=== PATIENT | male | born 1950 | race Caucasian/White ===

== ENCOUNTER 2017-03-27 10:13 | Inpatient (IN) | payer MEDICARE, OTHER ==
--- NOTE | 2017-03-27 11:49 | XR ---
EXAMINATION TYPE: XR Hip LT and AP Pelvis , 3 VIEWS DATE OF EXAM ORDERED: 03/27/2017 HISTORY: Pain. COMPARISON: None. FINDINGS: There are mild degenerative changes in both hips as well as in the lower lumbar spine. No fracture or dislocation is seen. IMPRESSION: 1. NO ACUTE OSSEOUS LESION. 2. MILD DEGENERATIVE CHANGE.
[2017-03-27] MEDS ORDERED: HYDROcodone/APAP 5-325MG 1 EACH TAB PO STA (12:12)
--- NOTE | 2017-03-27 13:02 | CT ---
EXAMINATION TYPE: CT hip LT wo con DATE OF EXAM: 03/27/2017 COMPARISON: NONE HISTORY: Fall off ladder, Lt hip pain TECHNIQUE: Helical acquisition through the region of the left hip was obtained without intravenous co ntrast. The data was reformatted in axial, coronal and sagittal projections. CT DLP: 304 mGycm Automated exposure control for dose reduction was used. FINDINGS: There is a minimally displaced and comminuted fractures of the anterior lip of the acetabul um on the left. No other definite fracture is seen. The femoral neck is not fractured. IMPRESSION: MINIMALLY DISPLACED, COMMINUTED FRACTURE OF THE ANTERIOR ASPECT OF THE ACETABULUM ON THE LEFT. CODE A: INITIAL ASSESSMENT FOR CLOSED FRACTURE
[2017-03-27] MEDS ORDERED: ONDANSETRON 4 MG/2 ML VIAL IVP PRN (13:56)
[2017-03-27] MEDS ORDERED: Acetaminophen-Codeine 300-30mg TAB PO PRN (13:56)
[2017-03-27] MEDS ORDERED: NALOXONE 0.4 MG/ML 1 ML VIAL IV PRN (13:56)
[2017-03-27] MEDS ORDERED: KETOROLAC 30 MG/ML 1 ML VIAL IVP PRN (13:56)
--- NOTE | 2017-03-27 13:56 | ED ---
General Adult HPI - General Chief complaint: Extremity Injury, Lower Stated complaint: fall, hip pain Time Seen by Provider: 03/27/17 10:35 Source: patient Mode of arrival: wheelchair Limitations: no limitations - History of Present Illness Initial comments: 67-year-old man present for evaluation of left hip pain. He states that he fell out of the latter last from a height of about 15 feet. He landed on his back and his side and stated that he had associated left shoulder and left rib pain initially however this has gradually been improving over the weekend. The left hip pain however has continued to worsen. He states it's worse in his back however it does radiate around into his left groin. He has been ambulatory for most of the weekend however he is having difficulty walking at this time. He denies any urinary retention/overflow incontinence, bowel incontinence, saddle anesthesia, lower extremity weakness. Pain is worse with flexion of the hip and weightbearing. Denies hitting his head or anticoagulation use. - Related Data Home Medications Medication Instructions Recorded Confirmed Ibuprofen [Motrin] 400 mg PO Q6HR PRN 03/27/17 03/27/17 Vit A/Vit C/Vit E/Zinc/Copper 1 cap PO DAILY 03/27/17 03/27/17 [ICAPS SOFTGEL] Allergies Allergy/AdvReac Type Severity Reaction Status Date / Time No Known Allergies Allergy Verified 03/27/17 11:02 Review of Systems ROS Statement: Those systems with pertinent positive or pertinent negative responses have been documented in the HPI. ROS Other: All systems not noted in ROS Statement are negative. Constitutional: Denies: fever, chills Eyes: Denies: eye pain, eye discharge ENT: Denies: ear pain, throat pain Respiratory: Denies: cough, dyspnea Cardiovascular: Denies: chest pain, palpitations Endocrine: Denies: fatigue, heat or cold intolerance Gastrointestinal: Denies: abdominal pain, nausea, vomiting Genitourinary: Denies: urgency, dysuria Musculoskeletal: Reports: back pain, arthralgia. Denies: joint swelling, myalgia Skin: Denies: rash, lesions Neurological: Denies: headache, weakness Psychiatric: Denies: anxiety, depression Hematological/Lymphatic: Denies: easy bleeding, easy bruising Past Medical History Past Medical History: No Reported History History of Any Multi-Drug Resistant Organisms: None Reported Past Surgical History: No Surgical Hx Reported Past Psychological History: No Psychological Hx Reported Smoking Status: Former smoker Past Alcohol Use History: None Reported Past Drug Use History: None Reported General Exam Limitations: no limitations General appearance: alert, in no apparent distress Head exam: Present: atraumatic, normocephalic, normal inspection Eye exam: Present: normal appearance, PERRL, EOMI. Absent: scleral icterus, conjunctival injection, periorbital swelling ENT exam: Present: normal exam, mucous membranes moist Neck exam: Present: normal inspection. Absent: tenderness, meningismus, lymphadenopathy Respiratory exam: Present: normal lung sounds bilaterally. Absent: respiratory distress, wheezes, rales, rhonchi, stridor Cardiovascular Exam: Present: regular rate, normal rhythm, normal heart sounds. Absent: systolic murmur, diastolic murmur, rubs, gallop, clicks GI/Abdominal exam: Present: soft, normal bowel sounds. Absent: distended, tenderness, guarding, rebound, rigid Rectal exam: Present: deferred Extremities exam: Present: tenderness, normal capillary refill, other ( tenderness to palpation over the anterior surface of the left hip as well as pain at the sacroiliac joint). Absent: normal inspection, full ROM, pedal edema , joint swelling Back exam: Present: normal inspection Neurological exam: Present: alert, oriented X3, CN II-XII intact Psychiatric exam: Present: normal affect, normal mood Skin exam: Present: warm, dry, intact, normal color. Absent: rash Course Vital Signs 03/27/17 03/27/17 10:25 14:12 Temperature 98.6 F 98.2 F Pulse Rate 77 74 Respiratory 18 18 Rate Blood Pressure 166/94 150/89 O2 Sat by Pulse 99 99 Oximetry Medical Decision Making - Medical Decision Making 67-year-old male presented for evaluation of left hip pain after falling out of a ladder on . On physical examination there is tenderness to palpation of the anterior surface of the left hip as well as posterior pain at the sacroiliac joint. Lower extremity motor, sensation, and pulses are intact. Leg lengths are equal. Concern for left hip fracture and will obtain x-ray. At this time the patient states he does not want any pain medications however stated he will inform if needed anything. X-ray revealed no significant abnormality however on follow-up CT he did have an acetabular fracture of the left hip. The patient was informed of this and agreed with plan to admit for further treatment and evaluation. He did state that during the x-ray he had worsening pain during manipulation and requested to be given something for pain. Pain addressed with [facility], IV established, and labs sent for admission. Dr. Ernst accepted the admission with request for consult with on-call orthopedic surgery. Since incident occurred >24 hours ago there is no indication to inform trauma of the admission. Admission order placed in bed request submitted. - Lab Data Result diagrams: 03/27/17 13:53 03/27/17 13:53 Lab Results 03/27/17 03/27/17 Range/Units 13:53 13:53 WBC 9.0 (3.8-10.6) k/uL RBC 4.60 (4.30-5.90) m/uL Hgb 15.2 (13.0-17.5) gm/dL Hct 43.6 (39.0-53.0) % MCV 94.8 (80.0-100.0) fL MCH 33.0 (25.0-35.0) pg MCHC 34.9 (31.0-37.0) g/dL RDW 13.4 (11.5-15.5) % Plt Count 194 (150-450) k/uL Neutrophils % 76 % Lymphocytes % 16 % Monocytes % 4 % Eosinophils % 1 % Basophils % 1 % Neutrophils # 6.8 (1.3-7.7) k/uL Lymphocytes # 1.5 (1.0-4.8) k/uL Monocytes # 0.4 (0-1.0) k/uL Eosinophils # 0.1 (0-0.7) k/uL Basophils # 0.1 (0-0.2) k/uL Sodium 139 (137-145) mmol/L Potassium 4.0 (3.5-5.1) mmol/L Chloride 103 (98-107) mmol/L Carbon Dioxide 23 (22-30) mmol/L Anion Gap 13 mmol/L BUN 9 (9-20) mg/dL Creatinine 0.83 (0.66-1.25) mg/dL Est GFR (MDRD) Af Amer >60 (>60 ml/min/1.73 sqM) Est GFR (MDRD) Non-Af >60 (>60 ml/min/1.73 sqM) Glucose 113 H (74-99) mg/dL Calcium 9.5 (8.4-10.2) mg/dL Disposition Clinical Impression: Acetabulum fracture, left Disposition: ADMITTED IP TO THIS [facility] Decision to Admit Reason: Admit from EC Decision Date: 03/27/17 Decision Time: 13:56
[2017-03-27 14:12] LABS: Basophils # (A) 0.1 k/uL (0-0.2); Basophils % (A) 1 %; CHCM 36.1; Eosinophils # (A) 0.1 k/uL (0-0.7); Eosinophils % (A) 1 %; HCT 43.6 % (39.0-53.0); HDW 2.67; HGB 15.2 gm/dL (13.0-17.5); Luc # (Auto) 0.16; Luc % (Auto) 2; Lymphocytes # (A) 1.5 k/uL (1.0-4.8); Lymphocytes % (A) 16 %; MCHC 34.9 g/dL (31.0-37.0); MCV 94.8 fL (80.0-100.0); Mean Platelet Volume 8.5; Monocytes # (A) 0.4 k/uL (0-1.0); Monocytes % (A) 4 %; Neutrophils # (A) 6.8 k/uL (1.3-7.7); Neutrophils % (A) 76 %; RDW 13.4 % (11.5-15.5); WBC (Perox) 9.04
[2017-03-27] MEDS ORDERED: LORazepam 2 MG/ML SYRINGE IV PRN ×3 (14:13)
[2017-03-27] MEDS ORDERED: THIAMINE 100 MG/ML 2 ML VIAL IM STA (14:13)
[2017-03-27] MEDS ORDERED: LORazepam 2 MG/ML SYRINGE IV STA (14:14)
[2017-03-27 14:25] LABS: Anion Gap 13 mmol/L; Blood Urea Nitrogen 9 mg/dL (9-20); Calcium 9.5 mg/dL (8.4-10.2); Carbon Dioxide 23 mmol/L (22-30); Chloride 103 mmol/L (98-107); Glucose 113 mg/dL (74-99); Non-African American GFR(MDRD) >60 (>60 ml/min/1.73 sqM); Sodium 139 mmol/L (137-145)
[2017-03-27 15:01] VITALS: BMI 27.8
[2017-03-27] MEDS: THIAMINE 100 MG TAB PO SCH (18:20)
[2017-03-27] MEDS: MORPHINE SULFATE 4 MG/ML SYRINGE IV PRN (20:43)
[2017-03-28] MEDS: MORPHINE SULFATE 4 MG/ML SYRINGE IV PRN ×3 (01:28→11:06)
[2017-03-28 02:02] VITALS: RESP 16
[2017-03-28 06:34] LABS: Basophils # (A) 0.1 k/uL (0-0.2); Basophils % (A) 1 %; CH 33.7; CHCM 35.5; Eosinophils # (A) 0.1 k/uL (0-0.7); Eosinophils % (A) 2 %; HCT 38.3 % (39.0-53.0); HDW 2.69; HGB 13.2 gm/dL (13.0-17.5); Luc # (Auto) 0.14; Luc % (Auto) 3; Lymphocytes # (A) 1.4 k/uL (1.0-4.8); Lymphocytes % (A) 24 %; MCH 33.1 pg (25.0-35.0); MCHC 34.6 g/dL (31.0-37.0); MCV 95.6 fL (80.0-100.0); Mean Platelet Volume 8.3; Monocytes # (A) 0.3 k/uL (0-1.0); Monocytes % (A) 5 %; Neutrophils # (A) 3.7 k/uL (1.3-7.7); Neutrophils % (A) 65 %; RBC 4.01 m/uL (4.30-5.90); RDW 12.9 % (11.5-15.5); WBC 5.7 k/uL (3.8-10.6); WBC (Perox) 5.66
[2017-03-28 06:49] LABS: Anion Gap 6 mmol/L; Blood Urea Nitrogen 12 mg/dL (9-20); Carbon Dioxide 26 mmol/L (22-30); Chloride 104 mmol/L (98-107); Glucose 112 mg/dL (74-99); Non-African American GFR(MDRD) >60 (>60 ml/min/1.73 sqM); Potassium 4.4 mmol/L (3.5-5.1); Sodium 136 mmol/L (137-145)
[2017-03-28 07:45] VITALS: BP 130/79; PULSE 79; TEMP 97.9
--- NOTE | 2017-03-28 08:27 | P.CNOR ---
History of Present Illness - [facility] Consult date: 03/28/17 Consult reason: fracture (Left acetabular fracture) History of present illness: This is a 67-year-old male who was injured while cutting a branch off of his tree yesterday. He states he was on a 15 foot ladder when the chain saw through him off balance. He fell landing on his left hip. He denies any other injuries at this time. He denies head injury or loss of consciousness. He is admitted to Dr. Murrieta we're consulted for orthopedic evaluation. Past Medical History Past Medical History: No Reported History History of Any Multi-Drug Resistant Organisms: None Reported Past Surgical History: No Surgical Hx Reported Past Anesthesia/Blood Transfusion Reactions: No Reported Reaction Past Psychological History: No Psychological Hx Reported Smoking Status: Former smoker Past Alcohol Use History: None Reported Past Drug Use History: None Reported Medications and Allergies Home Medications Medication Instructions Recorded Confirmed Type Ibuprofen [Motrin] 400 mg PO Q6HR PRN 03/27/17 03/27/17 History Vit A/Vit C/Vit E/Zinc/Copper 1 cap PO DAILY 03/27/17 03/27/17 History [ICAPS SOFTGEL] Allergies Allergy/AdvReac Type Severity Reaction Status Date / Time No Known Allergies Allergy Verified 03/27/17 11:02 Physical Examination This is a pleasant 67-year-old male in no acute distress. He is alert and oriented 3. Exam of the head neck reveal no obvious deformity. He has full cervical spine motion without difficulty or pain. There is no pain on palpation about the cervical spine or paraspinal musculature. Exam of the upper extremities unremarkable. There is no obvious deformity. He has full shoulder, elbow, wrist and finger motion bilaterally without pain. Exam of the lower extremities reveals no obvious deformity. He is able lift the right leg off the bed independently without pain or difficulty. There is no hip irritability on the right. He has full knee and ankle motion without difficulty or pain. Exam of left leg reveals pain with motion of the hip. He has difficulty lifting the left leg off the bed independently. He has full foot and ankle motion without difficulty. Neurovascular status to the lower extremities is intact. Results X-ray and CT of the hip and pelvis reveal a nondisplaced fracture of the anterior aspect of mid to anterior aspect of the acetabulum. No fractures noted to the femoral neck or IT region. - Labs Labs: Abnormal Lab Results - Last 24 Hours (Table) 03/27/17 03/28/17 03/28/17 Range/Units 13:53 06:10 06:10 RBC 4.01 L (4.30-5.90) m/uL Hct 38.3 L (39.0-53.0) % Sodium 136 L (137-145) mmol/L Glucose 113 H 112 H (74-99) mg/dL H & H 03/27/17 03/28/17 Range/Units 13:53 06:10 Hgb 15.2 13.2 (13.0-17.5) gm/dL Hct 43.6 38.3 L (39.0-53.0) % Result Diagrams: 03/28/17 06:10 03/28/17 06:10 Assessment and Plan (1) Acetabulum fracture, left Status: Acute Plan: The clinical and radiographic findings are discussed with the patient. The case was discussed with Dr. Jas Kendrick. The patient is to be strict nonweightbearing to the left lower extremity. We will have physical therapy work with him today. We are planning possible discharge to home today if he does well with therapy.
[2017-03-28] MEDS: THIAMINE 100 MG TAB PO SCH (08:39)
--- NOTE | 2017-03-28 10:34 | HP ---
HISTORY AND PHYSICAL CHIEF COMPLAINT: A 15-foot fall off a ladder to his lower extremities with positive acetabular fracture. HISTORY OF PRESENT ILLNESS: This 67-year-old, white male, with left hip pain, fell off a ladder last 15 feet, landed on his back and his side and left shoulder and left rib pain, although they are improved. He had pain in his left groin, CAT scan was done and showed acetabular fracture. Orthopedics is pending nonsurgical repair. He will be set up with home physical therapy and occupational therapy. HOME MEDICATIONS: 1. Motrin. 2. [place]. ALLERGIES: No known drug allergies. REVIEW OF SYSTEM: Fourteen point review of systems negative except for mentioned in HPI. PAST MEDICAL HISTORY: Negative. SOCIAL HISTORY: Former smoker. No alcohol. No illicit drugs. PHYSICAL EXAM: Vital signs stable, afebrile. CARDIOVASCULAR: S1, S2. LUNGS: Clear. GI: Soft. HEMATOLOGY: Negative Homans. PSYCH: Fair mood and affect. Temp 98.2, pulse 74, respiratory 16 to 18, blood pressure 150s to 160s over 89 to 94, O2, 99%, on room air. MUSCULOSKELETAL: Tenderness to palpation in hip area. ASSESSMENT: Acetabular fracture of the left hip. The patient was clinically stabilized and will be sent home in stable condition to follow up as an outpatient. MMODL / IJN: [id number] /
[2017-03-28] MEDS ORDERED: MULTIVITAMINS, THERA 1 EACH TAB PO SCH (12:00)
== END 2017-03-28 12:17 | disposition home health service (06) | DRG 536 ==
LOC: EC 10:13 → 3SUR 13:56
PROVIDERS: ADMIT Family Medicine; ATTEND Family Medicine
DX: S32.402A Unspecified fracture of left acetabulum, initial encounter for closed fracture (principal); Z87.891 Personal history of nicotine dependence; Z79.1 Long term (current) use of non-steroidal anti-inflammatories (NSAID); Z79.899 Other long term (current) drug therapy; Z79.891 Long term (current) use of opiate analgesic; W11.XXXA Fall on and from ladder, initial encounter
CPT/HCPCS: 36415; 73502; 80048; 85025

== ENCOUNTER 2020-05-21 08:25 | Day surgery (SDC) | payer MEDICARE ==
[2020-05-19 10:33] VITALS: BMI 22.9
--- NOTE | 2020-05-21 08:55 | P.GSHP ---
History of Present Illness H&P Date: 05/21/20 CHIEF COMPLAINT: Colon screen HISTORY OF PRESENT ILLNESS: The patient is a 70-year-old male who presents for colon screen. Lower endoscopy was offered for further evaluation and management. PAST MEDICAL HISTORY: Please see list. PAST SURGICAL HISTORY: Please see list. MEDICATIONS: Please see list. ALLERGIES: Please see list. SOCIAL HISTORY: No illicit drug use FAMILY HISTORY: No reports of Crohn disease or ulcerative colitis. REVIEW OF ORGAN SYSTEMS: CONSTITUTIONAL: No reports of fevers or chills. PHYSICAL EXAM: VITAL SIGNS: Stable GENERAL: Well-developed pleasant in no acute distress. HEENT: No scleral icterus. Extraocular movements grossly intact. Moist buccal mucosa. NECK: Supple without lymphadenopathy. CHEST: Unlabored respirations. Equal bilateral excursions. CARDIOVASCULAR: Regular rate and rhythm. Distal 2+ pulses. ABDOMEN: Soft, nontender, nondistended. MUSCULOSKELETAL: No clubbing, cyanosis, or edema. ASSESSMENT: 1. Colon screen. PLAN: 1. Recommend proceeding with a lower endoscopy Past Medical History Past Medical History: No Reported History History of Any Multi-Drug Resistant Organisms: None Reported Past Surgical History: No Surgical Hx Reported Past Anesthesia/Blood Transfusion Reactions: No Reported Reaction Smoking Status: Former smoker - Past Family History Mother Family Medical History: No Reported History Medications and Allergies Home Medications Medication Instructions Recorded Confirmed Type No Known Home Medications 05/19/20 05/19/20 History Allergies Allergy/AdvReac Type Severity Reaction Status Date / Time No Known Allergies Allergy Verified 05/19/20 10:27
[2020-05-21 09:11] VITALS: TEMP 98.5
[2020-05-21] MEDS: LACTATED RINGERS 1,000 ML IV SCH ×2 (09:25→10:15)
[2020-05-21] MEDS ORDERED: LIDOCAINE 1% (10MG/ML) FOR IV START INTRADERMA ONE (09:25)
[2020-05-21] MEDS ORDERED: PROPOFOL 10 MG/ML 20 ML VIAL IV ONE (10:19)
[2020-05-21 10:52] VITALS: RESP 16
--- NOTE | 2020-05-21 10:58 | P.PCN ---
Date of Procedure: 05/21/20 Description of Procedure: PREOPERATIVE DIAGNOSIS: Colonoscopy screening, first POSTOPERATIVE DIAGNOSIS: Colonoscopy screening, first Sigmoid diverticulosis Ascending colon adenoma Rectal adenoma External hemorrhoids Internal hemorrhoids OPERATION: Colonoscopy to the ileocecal valve and appendiceal orifice, cecum Colonoscopy with multiple hot snare polypectomies SURGEON: Lauren Andrew MD. ANESTHESIA: MAC. INDICATIONS: The patient is an 70-year-old male who presents for his first colonoscopy. Benefits and risks were described and informed consent was obtained. DESCRIPTION OF PROCEDURE: The patient had undergone Suprep. He had been brought into the operating room and laid in the left lateral decubitus position. After adequate intravenous sedation, the rectum was examined with 2% lidocaine jelly. The prostate was unremarkable. External hemorrhoids were encountered. The rectal tone was within normal limits. No lesions were palpated in the rectal vault. An Olympus colonoscope was advanced until the cecum, ileocecal valve and appendiceal orifice were clearly viewed. The prep was fair. Sigmoid diverticulosis was encountered. Multiple colonic polyps were found and snare polypectomy. No evidence of focal colitis was found. Retroflexion of the scope demonstrated grade 2 internal hemorrhoids without active bleeding or inflammation. The colon was desufflated. The patient had tolerated the procedure well. Withdrawal time was over 6 minutes. FINDINGS: Aronchick preparation quality scale 1 (1-5) Internal hemorrhoids, grade 2 External hemorrhoids, grade 3 No arteriovenous malformations. Sigmoid diverticulosis Removal of 3 polyps: - Snare polypectomy cecum x 2, 5 to 12 mm tubulovillous adenoma polyp. - Snare polypectomy 10 cm from the anal verge, 5 mm flat villous adenoma polyp. No focal colitis. RECOMMENDATIONS: Given severity of tubular adenomas, recommend repeat colonoscopy in 2 years, 2021 Plan - Discharge Summary Discharge Rx Participant: No New Discharge Prescriptions: Continue No Known Home Medications Discharge Medication List No Known Home Medications 05/19/20 [History] Follow up Appointment(s)/Referral(s): Lauren Andrew MD [STAFF PHYSICIAN] - As Needed Patient Instructions/Handouts: Colorectal Polyps (DC), Diverticulosis Diet (GEN), Diverticulosis (DC) Activity/Diet/Wound Care/Special Instructions: Repeat colonoscopy 2 years, 2021 Discharge Disposition: HOME SELF-CARE
[2020-05-21 11:12] VITALS: BP 159/89; PULSE 71
--- NOTE | 2020-05-23 08:01 | CDI ---
Date: 05.23.2020 CDS/[facility] Name: Romy Waddell Phone: If any questions, call Katerine Zhu Licensed [employer] at [phone] Patient Name: Jean Carlos Espinal Admit Date 05.21.20 Discharge Date: 05.21.20 ATTENTION: The [facility] Coding Staff appreciate your assistance in clarifying documentation. Please respond to the clarification below the line at the bottom and electronically sign. The [facility] Coding staff will review the response and follow-up if needed. Please note: Queries are made part of the Legal Health Record. If you have any questions, please contact the [employer] Appraiser. Dear Dr. Andrew In order to code to the greatest specificity and for the greatest reimbursement I need the following information: in your colonscopy note you have documented: Ascending colon Adenoma and rectal adenoma in the post op dx and Snare polypectomy cecum under findings And on the path report they have: Tubulovillous adenoma of the cecum Please clarify whether the biopsy was of the cecum or ascending colon. Thank you for your kind consideration. Tubulovillous adenoma of the cecum 05/25/20 @ 1921 NIA
== END 2020-05-21 11:41 | disposition home or self-care (01) ==
LOC: ORWHC2ENDO 08:25
PROVIDERS: ATTEND Surgery Plastic and Reconstructive Surgery
DX: Z12.11 Encounter for screening for malignant neoplasm of colon (principal); K57.30 Diverticulosis of large intestine without perforation or abscess without bleeding; D12.6 Benign neoplasm of colon, unspecified; D12.0 Benign neoplasm of cecum; K64.4 Residual hemorrhoidal skin tags; K64.1 Second degree hemorrhoids; Z87.891 Personal history of nicotine dependence; Z97.2 Presence of dental prosthetic device (complete) (partial); Z98.890 Other specified postprocedural states
CPT/HCPCS: 88305; 45385; J2704

== ENCOUNTER → 2020-07-08 | Outpatient (CLI) | payer MEDICARE ==
[2020-07-08 09:44] LABS: Basophils % (A) 1 %; Eosinophils % (A) 1 %; HCT 44.4 % (39.0-53.0); HGB 14.8 gm/dL (13.0-17.5); Lymphocytes # (A) 0.9 k/uL (1.0-4.8); Lymphocytes % (A) 18 %; MCH 34.6 pg (25.0-35.0); MCHC 33.3 g/dL (31.0-37.0); Macrocytosis Slight; Mean Platelet Volume 7.3; Monocytes # (A) 0.3 k/uL (0-1.0); Monocytes % (A) 7 %; Neutrophils # (A) 3.4 k/uL (1.3-7.7); Neutrophils % (A) 71 %; Platelet Count 269 k/uL (150-450); RBC 4.28 m/uL (4.30-5.90); WBC 4.7 k/uL (3.8-10.6)
== END | disposition home or self-care (01) ==
LOC: LABWHC1 09:01
PROVIDERS: ATTEND Family Medicine
DX: R71.8 Other abnormality of red blood cells (principal)
CPT/HCPCS: 36415; 85025

== ENCOUNTER 2022-01-27 14:16 | Inpatient (IN) | payer OTHER, MEDICARE ==
[2022-01-27 16:22] LABS: Basophils % (A) 0 %; Eosinophils % (A) 0 %; HGB 14.8 gm/dL (13.0-17.5); Lymphocytes # (A) 0.8 k/uL (1.0-4.8); Lymphocytes % (A) 8 %; MCHC 34.4 g/dL (31.0-37.0); MCV 104.8 fL (80.0-100.0); Macrocytosis Slight; Mean Platelet Volume 7.4; Monocytes # (A) 0.4 k/uL (0-1.0); Monocytes % (A) 4 %; Neutrophils % (A) 86 %; Platelet Count 238 k/uL (150-450); RDW 11.7 % (11.5-15.5); WBC 9.3 k/uL (3.8-10.6)
[2022-01-27] MEDS ORDERED: PANTOPRAZOLE 40 MG/10 ML VIAL IVP STA (16:23)
[2022-01-27 16:30] LABS: ALT 25 U/L (4-49); AST 52 U/L (17-59); African American GFR (CKD) >90 (>60 ml/min/1.73 sqM); Albumin 4.4 g/dL (3.5-5.0); Alkaline Phosphatase 83 U/L (38-126); Anion Gap 10 mmol/L; Blood Urea Nitrogen 13 mg/dL (9-20); Calcium 9.3 mg/dL (8.4-10.2); Carbon Dioxide 22 mmol/L (22-30); Chloride 91 mmol/L (98-107); Glucose 104 mg/dL (74-99); Non-African American GFR(CKD) >90 (>60 ml/min/1.73 sqM); Potassium 4.8 mmol/L (3.5-5.1); Sodium 123 mmol/L (137-145); Total Bilirubin 1.6 mg/dL (0.2-1.3); Total Protein 7.5 g/dL (6.3-8.2)
[2022-01-27 17:09] LABS: INR 1.1 (<1.2); Prothrombin Time 11.7 sec (9.0-12.0)
[2022-01-27] MEDS ORDERED: THIAMINE 100 MG/ML 2 ML VIAL IM STA (17:12)
[2022-01-27] MEDS ORDERED: LORazepam 1 MG/0.5 ML VIAL IV PRN ×3 (17:12→18:10)
[2022-01-27] MEDS ORDERED: LORazepam 2 MG/ML INJ IV PRN (17:12)
[2022-01-27] MEDS ORDERED: NALOXONE 0.4 MG/ML 1 ML VIAL IV PRN (17:19)
--- NOTE | 2022-01-27 17:19 | ED ---
General Adult HPI - General Chief complaint: GI Bleed Stated complaint: Black Stool, Diarrhea Time Seen by Provider: 01/27/22 16:21 Source: patient, RN notes reviewed, old records reviewed Mode of arrival: wheelchair Limitations: no limitations - History of Present Illness Initial comments: 71-year-old male presents with multiple episodes of black tarry stool. Symptoms began yesterday evening. Patient has no prior history of gastrointestinal hemorrhage or bleeding ulcer. He is a daily drinker, drinks beer. No history of NSAID use. He states he does feel somewhat lightheaded. His last drink was prior to arrival. - Related Data Home Medications Medication Instructions Recorded Confirmed No Known Home Medications 05/19/20 05/21/20 Allergies Allergy/AdvReac Type Severity Reaction Status Date / Time No Known Allergies Allergy Verified 01/27/22 14:59 Review of Systems ROS Statement: Those systems with pertinent positive or pertinent negative responses have been documented in the HPI. ROS Other: All systems not noted in ROS Statement are negative. Past Medical History Past Medical History: No Reported History History of Any Multi-Drug Resistant Organisms: None Reported Past Surgical History: No Surgical Hx Reported Past Anesthesia/Blood Transfusion Reactions: No Reported Reaction Past Psychological History: No Psychological Hx Reported Smoking Status: Former smoker Past Alcohol Use History: Abuse, Daily, Heavy Past Drug Use History: None Reported - Past Family History Mother Family Medical History: No Reported History General Exam Limitations: no limitations General appearance: alert, in no apparent distress Head exam: Present: atraumatic, normocephalic Eye exam: Present: normal appearance Neck exam: Present: normal inspection. Absent: tenderness Respiratory exam: Present: normal lung sounds bilaterally. Absent: respiratory distress Cardiovascular Exam: Present: normal rhythm, tachycardia GI/Abdominal exam: Present: soft. Absent: distended, tenderness, guarding, rebound Rectal exam: Present: normal rectal tone, black stool, hemorrhoids Extremities exam: Present: normal inspection, normal capillary refill Neurological exam: Present: alert, oriented X3, CN II-XII intact. Absent: motor sensory deficit Psychiatric exam: Present: normal affect, normal mood Skin exam: Present: warm, dry, intact Course Vital Signs 01/27/22 14:56 Temperature 98 F Pulse Rate 111 H Respiratory 18 Rate Blood Pressure 129/74 O2 Sat by Pulse 100 Oximetry EKG Findings - EKG Comments: EKG Findings:: EKG: Sinus tachycardia rate of 100, no ischemic changes, VA interval 157, QRS duration 91, QTC [address] segment elevation. Medical Decision Making - Medical Decision Making 71-year-old male with melanotic stool, suggestive of upper GI bleed. Patient is a daily drinker. He started on Protonix. Hemoglobin is stable. Patient has a sodium of 123. His stool sample is heme positive. He will be admitted for serial hemoglobin testing, PPI, patient's will be admitted to [facility] hospitalist group. - Lab Data Result diagrams: 01/27/22 15:02 01/27/22 15:02 Lab Results 01/27/22 01/27/22 01/27/22 Range/Units 15:02 15:02 15:02 WBC 9.3 (3.8-10.6) k/uL RBC 4.10 L (4.30-5.90) m/uL Hgb 14.8 (13.0-17.5) gm/dL Hct 43.0 (39.0-53.0) % MCV 104.8 H (80.0-100.0) fL MCH 36.0 H (25.0-35.0) pg MCHC 34.4 (31.0-37.0) g/dL RDW 11.7 (11.5-15.5) % Plt Count 238 (150-450) k/uL MPV 7.4 Neutrophils % 86 % Lymphocytes % 8 % Monocytes % 4 % Eosinophils % 0 % Basophils % 0 % Neutrophils # 8.0 H (1.3-7.7) k/uL Lymphocytes # 0.8 L (1.0-4.8) k/uL Monocytes # 0.4 (0-1.0) k/uL Eosinophils # 0.0 (0-0.7) k/uL Basophils # 0.0 (0-0.2) k/uL Macrocytosis Slight PT (9.0-12.0) sec INR (<1.2) APTT 27.8 (22.0-30.0) sec Sodium 123 L (137-145) mmol/L Potassium 4.8 (3.5-5.1) mmol/L Chloride 91 L (98-107) mmol/L Carbon Dioxide 22 (22-30) mmol/L Anion Gap 10 mmol/L BUN 13 (9-20) mg/dL Creatinine 0.57 L (0.66-1.25) mg/dL Est GFR (CKD-EPI)AfAm >90 (>60 ml/min/1.73 sqM) Est GFR (CKD-EPI)NonAf >90 (>60 ml/min/1.73 sqM) Glucose 104 H (74-99) mg/dL Calcium 9.3 (8.4-10.2) mg/dL Total Bilirubin 1.6 H (0.2-1.3) mg/dL AST 52 (17-59) U/L ALT 25 (4-49) U/L Alkaline Phosphatase 83 (38-126) U/L Troponin I (0.000-0.034) ng/mL Total Protein 7.5 (6.3-8.2) g/dL Albumin 4.4 (3.5-5.0) g/dL Stool Occult Blood (Negative) Serum Alcohol mg/dL Blood Type Blood Type Recheck Bld Type Recheck Status Antibody Screen Spec Expiration Date 01/27/22 01/27/22 01/27/22 Range/Units 15:02 15:03 16:36 WBC (3.8-10.6) k/uL RBC (4.30-5.90) m/uL Hgb (13.0-17.5) gm/dL Hct (39.0-53.0) % MCV (80.0-100.0) fL MCH (25.0-35.0) pg MCHC (31.0-37.0) g/dL RDW (11.5-15.5) % Plt Count (150-450) k/uL MPV Neutrophils % % Lymphocytes % % Monocytes % % Eosinophils % % Basophils % % Neutrophils # (1.3-7.7) k/uL Lymphocytes # (1.0-4.8) k/uL Monocytes # (0-1.0) k/uL Eosinophils # (0-0.7) k/uL Basophils # (0-0.2) k/uL Macrocytosis PT (9.0-12.0) sec INR (<1.2) APTT (22.0-30.0) sec Sodium (137-145) mmol/L Potassium (3.5-5.1) mmol/L Chloride (98-107) mmol/L Carbon Dioxide (22-30) mmol/L Anion Gap mmol/L BUN (9-20) mg/dL Creatinine (0.66-1.25) mg/dL Est GFR (CKD-EPI)AfAm (>60 ml/min/1.73 sqM) Est GFR (CKD-EPI)NonAf (>60 ml/min/1.73 sqM) Glucose (74-99) mg/dL Calcium (8.4-10.2) mg/dL Total Bilirubin (0.2-1.3) mg/dL AST (17-59) U/L ALT (4-49) U/L Alkaline Phosphatase (38-126) U/L Troponin I <0.012 (0.000-0.034) ng/mL Total Protein (6.3-8.2) g/dL Albumin (3.5-5.0) g/dL Stool Occult Blood Positive (Negative) Serum Alcohol mg/dL Blood Type O Negative Blood Type Recheck No Previous Record Bld Type Recheck Status CABO Indicated Antibody Screen NEGATIVE Spec Expiration Date 01/30/2022 - 230201/27/22 01/27/22 Range/Units 16:36 16:48 WBC (3.8-10.6) k/uL RBC (4.30-5.90) m/uL Hgb (13.0-17.5) gm/dL Hct (39.0-53.0) % MCV (80.0-100.0) fL MCH (25.0-35.0) pg MCHC (31.0-37.0) g/dL RDW (11.5-15.5) % Plt Count (150-450) k/uL MPV Neutrophils % % Lymphocytes % % Monocytes % % Eosinophils % % Basophils % % Neutrophils # (1.3-7.7) k/uL Lymphocytes # (1.0-4.8) k/uL Monocytes # (0-1.0) k/uL Eosinophils # (0-0.7) k/uL Basophils # (0-0.2) k/uL Macrocytosis PT 11.7 (9.0-12.0) sec INR 1.1 (<1.2) APTT (22.0-30.0) sec Sodium (137-145) mmol/L Potassium (3.5-5.1) mmol/L Chloride (98-107) mmol/L Carbon Dioxide (22-30) mmol/L Anion Gap mmol/L BUN (9-20) mg/dL Creatinine (0.66-1.25) mg/dL Est GFR (CKD-EPI)AfAm (>60 ml/min/1.73 sqM) Est GFR (CKD-EPI)NonAf (>60 ml/min/1.73 sqM) Glucose (74-99) mg/dL Calcium (8.4-10.2) mg/dL Total Bilirubin (0.2-1.3) mg/dL AST (17-59) U/L ALT (4-49) U/L Alkaline Phosphatase (38-126) U/L Troponin I (0.000-0.034) ng/mL Total Protein (6.3-8.2) g/dL Albumin (3.5-5.0) g/dL Stool Occult Blood (Negative) Serum Alcohol <10 mg/dL Blood Type Blood Type Recheck Bld Type Recheck Status Antibody Screen Spec Expiration Date Disposition Clinical Impression: Melena, Upper GI bleed Disposition: ADMITTED IP TO THIS HOSP Condition: Stable Is patient prescribed a controlled substance at d/c from ED?: No Referrals: Srinath Stevenson DO [Primary Care Provider] - 1-2 days Time of Disposition: 17:19
[2022-01-27] MEDS: SODIUM CHLORIDE 0.9% 1,000 ML IV SCH (17:49)
[2022-01-27] MEDS: PANTOPRAZOLE 40 MG/10 ML VIAL IVP SCH (20:24)
[2022-01-28 07:16] LABS: Basophils % (A) 0 %; Eosinophils % (A) 1 %; HCT 35.2 % (39.0-53.0); HGB 11.9 gm/dL (13.0-17.5); Lymphocytes # (A) 0.9 k/uL (1.0-4.8); Lymphocytes % (A) 20 %; MCH 35.2 pg (25.0-35.0); MCHC 33.9 g/dL (31.0-37.0); MCV 103.9 fL (80.0-100.0); Macrocytosis Slight; Mean Platelet Volume 7.6; Monocytes # (A) 0.2 k/uL (0-1.0); Monocytes % (A) 5 %; Neutrophils # (A) 3.4 k/uL (1.3-7.7); Neutrophils % (A) 73 %; Platelet Count 151 k/uL (150-450); RBC 3.38 m/uL (4.30-5.90); RDW 11.3 % (11.5-15.5); WBC 4.6 k/uL (3.8-10.6)
[2022-01-28] MEDS: SODIUM CHLORIDE 0.9% 1,000 ML IV SCH ×2 (07:25→19:55)
[2022-01-28] MEDS: PANTOPRAZOLE 40 MG/10 ML VIAL IVP SCH ×2 (07:29→19:48)
[2022-01-28] MEDS: THIAMINE 100 MG TAB PO SCH ×2 (07:31→17:17)
[2022-01-28 07:38] LABS: ALT 17 U/L (4-49); AST 34 U/L (17-59); African American GFR (CKD) >90 (>60 ml/min/1.73 sqM); Albumin 3.1 g/dL (3.5-5.0); Albumin/Globulin Ratio 1.1; Alkaline Phosphatase 63 U/L (38-126); Anion Gap 2 mmol/L; Blood Urea Nitrogen 10 mg/dL (9-20); Calcium 8.4 mg/dL (8.4-10.2); Carbon Dioxide 24 mmol/L (22-30); Chloride 105 mmol/L (98-107); Globulin 2.7 g/dL; Glucose 78 mg/dL (74-99); Non-African American GFR(CKD) >90 (>60 ml/min/1.73 sqM); Potassium 3.8 mmol/L (3.5-5.1); Sodium 131 mmol/L (137-145); Total Bilirubin 1.4 mg/dL (0.2-1.3); Total Protein 5.8 g/dL (6.3-8.2)
--- NOTE | 2022-01-28 11:18 | P.CONS ---
History of Present Illness - Reason for Consult Consult date: 01/28/22 GI bleed Requesting physician: Mayur Morris - Chief Complaint Black tarry stools - History of Present Illness This is a pleasantly somewhat confused 71-year-old white male who presented to the emergency department yesterday evening with complaints of a large black tarry bowel movement. He denied any associated abdominal pain, nausea or vomiting. He denies any anticoagulation or NSAID use. He denies any previous history of GI bleed. He denies any history of peptic ulcer disease or GERD. His last colonoscopy was 05/21/[address] King with findings of internal and external hemorrhoids, diverticulosis and colon polyps. Patient is a is a heavy daily alcohol drinker. He drinks a 20 pack of 18 nodes beers a day according to his . He denies any previous history of esophageal varices, no liver disease or cirrhosis of the liver. On admission he had a hemoglobin of 14.8 with a drop today to 11.9. He had 2 further episodes of black stool yes terday evening and this morning. He is currently on [facility] recall for withdrawals. He is somewhat confused, his is at the bedside to fill in the rest of his history. WBC 4.6 hemoglobin 11.9 hematocrit 35.2 MCV 103.9 MCH 35.2 platelet count 151,009 are 1.1 total bilirubin 1.4 AST 34 ALT 17 alkaline phosphatase 63 ammonia less than 9 Review of Systems REVIEW OF SYSTEMS: CARDIOPULMONARY: No chest pain or shortness of breath. Gastrointestinal: No abdominal pain. No nausea or vomiting. No hematemesis, coffee-ground emesis. No rectal bleeding. Black tarry stool for the last 2 days duration GENITOURINARY: No dysuria or hematuria. MUSCULOSKELETAL: Reports normal range of motion. SKIN: No rashes. No jaundice. ENDOCRINE: No chills, fevers. No excessive weight gain or loss. No polydipsia or polyuria. PSYCHIATRIC: Unremarkable. NEUROLOGY: No change in mental status. Denies dizziness, headache. ENT: Vision unremarkable. CONSTITUTIONAL: No recent weight loss. No fever, chills, night sweats. Past Medical History Past Medical History: No Reported History History of Any Multi-Drug Resistant Organisms: None Reported Past Surgical History: No Surgical Hx Reported Past Anesthesia/Blood Transfusion Reactions: No Reported Reaction Past Psychological History: No Psychological Hx Reported Smoking Status: Former smoker Past Alcohol Use History: Abuse, Daily, Heavy Additional Past Alcohol Use History / Comment(s): QUIT SMOKING AT AGE 25 Past Drug Use History: None Reported - Past Family History Mother Family Medical History: No Reported History Medications and Allergies Home Medications Medication Instructions Recorded Confirmed Type No Known Home Medications 05/19/20 01/27/22 History Allergies Allergy/AdvReac Type Severity Reaction Status Date / Time No Known Allergies Allergy Verified 01/27/22 18:01 Physical Exam Vitals: Vital Signs Temp Pulse Pulse Resp BP BP Pulse Ox 01/28/22 07:40 98.3 F 72 18 137/83 97 01/28/22 00:58 98.6 F 94 18 138/75 98 01/27/22 18:57 99.5 F 86 20 129/82 100 01/27/22 18:26 98.3 F 67 17 134/84 99 01/27/22 17:20 108 H 18 124/81 96 01/27/22 14:56 98 F 111 H 18 129/74 100 Intake and Output 01/27/22 01/28/22 01/28/22 22:59 06:59 14:59 Other: Voiding Method Urinal # Voids 1 # Bowel Movements 1 Weight 54.431 kg General appearance: The patient is alert, oriented, appears in no acute distress. HET: Head is normocephalic and atraumatic. Conjunctiva pink. Sclera anicteric. Neck: Supple without lymphadenopathy. Trachea midline. Heart: S1 S2. Regular rate and rhythm. Lungs: Clear to auscultation. Abdomen: Soft, nontender, nondistended with bowel sounds. No guarding or rigidity. Skin: No rashes. No jaundice. Extremities: Normal skin color and turgor. No pedal edema. Neurological: The patient is alert and oriented to self and place. Seems somewhat confused. Results CBC & Chem 7: 01/28/22 06:55 01/28/22 06:55 Labs: Abnormal Lab Results - Last 24 Hours (Table) 01/27/22 01/27/22 01/28/22 Range/Units 15:02 15:02 06:55 RBC 4.10 L 3.38 L (4.30-5.90) m/uL Hgb 11.9 L (13.0-17.5) gm/dL Hct 35.2 L (39.0-53.0) % MCV 104.8 H 103.9 H (80.0-100.0) fL MCH 36.0 H 35.2 H (25.0-35.0) pg RDW 11.3 L (11.5-15.5) % Neutrophils # 8.0 H (1.3-7.7) k/uL Lymphocytes # 0.8 L 0.9 L (1.0-4.8) k/uL Sodium 123 L (137-145) mmol/L Chloride 91 L (98-107) mmol/L Creatinine 0.57 L (0.66-1.25) mg/dL Glucose 104 H (74-99) mg/dL Total Bilirubin 1.6 H (0.2-1.3) mg/dL Total Protein (6.3-8.2) g/dL Albumin (3.5-5.0) g/dL 01/28/22 Range/Units 06:55 RBC (4.30-5.90) m/uL Hgb (13.0-17.5) gm/dL Hct (39.0-53.0) % MCV (80.0-100.0) fL MCH (25.0-35.0) pg RDW (11.5-15.5) % Neutrophils # (1.3-7.7) k/uL Lymphocytes # (1.0-4.8) k/uL Sodium 131 L (137-145) mmol/L Chloride (98-107) mmol/L Creatinine 0.59 L (0.66-1.25) mg/dL Glucose (74-99) mg/dL Total Bilirubin 1.4 H (0.2-1.3) mg/dL Total Protein 5.8 L (6.3-8.2) g/dL Albumin 3.1 L (3.5-5.0) g/dL Assessment and Plan (1) Upper GI bleed Narrative/Plan: A pleasant 71-year-old male who presented to the emergency department with complaints of black tarry stool for the last 1-2 days duration. No prior history of GI bleed. No prior history of peptic ulcer disease or GERD. Denies any anticoagulation or NSAID use. He has a significant daily drinker drinking approximately 18 beers a day for the last 2-3 years. He denies any history of esophageal varices, no known history of liver disease. He denies any abdominal pain, nausea or vomiting. Patient underwent colonoscopy in [address] Andrew findings included internal/external hemorrhoids, diverticulosis and colon polyps. Possible etiologies include peptic ulcer disease, gastritis, esophagitis, esophageal appears AVM or other possible etiologies. Proceed with EGD tomorrow pending patient is not having withdrawal symptoms. Current Visit: Yes Status: Acute Code(s): K92.2 - GASTROINTESTINAL HEMORRHAGE, UNSPECIFIED SNOMED Code(s): 67344196 (2) Melena Current Visit: Yes Status: Acute Code(s): K92.1 - MELENA SNOMED Code(s): 0268530 (3) Alcohol abuse Current Visit: Yes Status: Acute Code(s): F10.10 - ALCOHOL ABUSE, UNCOMPLICATED SNOMED Code(s): 12306322 Plan: 1. Continue symptomatic and supportive care 2. Protonix 40 mg twice a day 3. Follow CIWA protocols and evaluate for withdrawal symptoms 4. Patient may have clear liquid diet, nothing by mouth after midnight 5. Alcohol abstinence 6. Will proceed with EGD tomorrow if patient stable Thank you for this consultation, we will continue to follow. Dr. Shelli Noyola I agree with the dictator's note, documented as a scribe by Suzi Gan.
--- NOTE | 2022-01-28 14:03 | P.HPIM ---
History of Present Illness H&P Date: 01/28/22 This is a pleasant 71-year-old male who has history of daily alcohol use for many years. He denies daily drinking, at the bedside states he drinks on average 20 tall beers daily, he states he starts drinking around 0600 and drinks until he goes to bed. Patient is a poor historian and his provides most of the history at the bedside. He presents with one-day history of black tarry stool with concern for upper GI bleed. States he was working out in the garage and had a large dark liquidy bowel movement which he was incontinent of. He had one last night and this morning also. He denies shortness of breath, no chest pain. No hematemesis, no coffee ground emesis. No abdominal pain reported, no epigastric burning or discomfort either. He has no history of previous GI bleed, reports no liver disease. No significant medical history noted. He has quit smoking about 40 years ago. He was started on IV Protonix and admitted for work up regarding possible upper GI bleed and GI services has been consulted. Patient is also started on CIWA protocol and will be monitored for acute alcohol withdrawal. He denies history of withdrawal. Diagnostics on admission; EKG is showing sinus tachycardia with heart rate 100, QT interval 406. There are no significant ST or T wave changes. hemoglobin is 14.8 and is now 11.9. Platelets have also dropped from 238 down to 151. Sodium is 131 it was 123 at admission, total bili 1.4. Ammonia less than 9. Occult positive. He is afebrile, heart rate 72, blood pressure 137/83, 97% room air. REVIEW OF SYSTEMS: CONSTITUTIONAL: No fever, no malaise, no fatigue. HEENT: No recent visual problems or hearing problems. Denied any sore throat. CARDIOVASCULAR: No chest pain, orthopnea, PND, no palpitations, no syncope. PULMONARY: No shortness of breath, no cough, no hemoptysis. GASTROINTESTINAL: No nausea, no vomiting, no abdominal pain. Reports 3 episodes of dark loose stool. NEUROLOGICAL: No headaches, no weakness, no numbness. HEMATOLOGICAL: Denies any bleeding or petechiae. GENITOURINARY: Denies any burning micturition, frequency, or urgency. MUSCULOSKELETAL/RHEUMATOLOGICAL: Denies any joint pain, swelling, or any muscle pain. ENDOCRINE: Denies any polyuria or polydipsia. The rest of the 14-point review of systems is negative. PHYSICAL EXAMINATION: GENERAL: The patient is alert and oriented x3, confused. not in any acute dist ress. Well developed, well nourished. HEENT: Pupils are round and equally reacting to light. EOMI. No scleral icterus. No conjunctival pallor. Normocephalic, atraumatic. No pharyngeal erythema. No th yromegaly. CARDIOVASCULAR: S1 and S2 present. No murmurs, rubs, or gallops. PULMONARY: Chest is clear to auscultation, no wheezing or crackles. ABDOMEN: Soft, nontender, nondistended, normoactive bowel sounds. No palpable organomegaly. MUSCULOSKELETAL: No joint swelling or deformity. EXTREMITIES: No cyanosis, clubbing, or pedal edema. NEUROLOGICAL: Gross neurological examination did not reveal any focal deficits. SKIN: No rashes. Assessment and plan Assessment Melenic stool possible upper GI bleed Anemia possible blood loss from upper GI bleed Chronic daily alcohol use Hyponatremia most likely chronic alcohol use drinks beer. Could be a beer potomania. Hypertension with no history Former smoker GI prophylaxis Full Code Plan Patient will be evaluated by GI services and possibly undergo EGD CBC, BMP repeat in the AM Continue on CIWA protocol and monitoring for acute alcohol withdrawal Continue IV hydration with normal saline Continue IV protonix He has been counseled on importance of quitting alcohol Continue all other supportive care The impression and plan of care has been dictated by Sarah Mata Nurse Practitioner as directed. Dr. Parmjit MD I have performed a history and physical examination and medical decision making of this patient, discussed the same with the dictator, and agree with the dictators assessment and plan as written, documented as a scribe. Based on total visit time, I have performed more than 50% of this visit. Past Medical History Past Medical History: No Reported History History of Any Multi-Drug Resistant Organisms: None Reported Past Surgical History: No Surgical Hx Reported Past Anesthesia/Blood Transfusion Reactions: No Reported Reaction Past Psychological History: No Psychological Hx Reported Smoking Status: Former smoker Past Alcohol Use History: Abuse, Daily, Heavy Additional Past Alcohol Use History / Comment(s): QUIT SMOKING AT AGE 25 Past Drug Use History: None Reported - Past Family History Mother Family Medical History: No Reported History Medications and Allergies Home Medications Medication Instructions Recorded Confirmed Type No Known Home Medications 05/19/20 01/27/22 History Allergies Allergy/AdvReac Type Severity Reaction Status Date / Time No Known Allergies Allergy Verified 01/27/22 18:01 Physical Exam Vitals: Vital Signs Temp Pulse Pulse Resp BP BP Pulse Ox 01/28/22 07:40 98.3 F 72 18 137/83 97 01/28/22 00:58 98.6 F 94 18 138/75 98 01/27/22 18:57 99.5 F 86 20 129/82 100 01/27/22 18:26 98.3 F 67 17 134/84 99 01/27/22 17:20 108 H 18 124/81 96 01/27/22 14:56 98 F 111 H 18 129/74 100 Intake and Output 01/27/22 01/28/22 01/28/22 22:59 06:59 14:59 Other: Voiding Method Urinal # Voids 1 # Bowel Movements 1 Weight 54.431 kg Results CBC & Chem 7: 01/28/22 06:55 01/28/22 06:55 Labs: Abnormal Lab Results - Last 24 Hours (Table) 01/27/22 01/27/22 01/28/22 Range/Units 15:02 15:02 06:55 RBC 4.10 L 3.38 L (4.30-5.90) m/uL Hgb 11.9 L (13.0-17.5) gm/dL Hct 35.2 L (39.0-53.0) % MCV 104.8 H 103.9 H (80.0-100.0) fL MCH 36.0 H 35.2 H (25.0-35.0) pg RDW 11.3 L (11.5-15.5) % Neutrophils # 8.0 H (1.3-7.7) k/uL Lymphocytes # 0.8 L 0.9 L (1.0-4.8) k/uL Sodium 123 L (137-145) mmol/L Chloride 91 L (98-107) mmol/L Creatinine 0.57 L (0.66-1.25) mg/dL Glucose 104 H (74-99) mg/dL Total Bilirubin 1.6 H (0.2-1.3) mg/dL Total Protein (6.3-8.2) g/dL Albumin (3.5-5.0) g/dL 01/28/22 Range/Units 06:55 RBC (4.30-5.90) m/uL Hgb (13.0-17.5) gm/dL Hct (39.0-53.0) % MCV (80.0-100.0) fL MCH (25.0-35.0) pg RDW (11.5-15.5) % Neutrophils # (1.3-7.7) k/uL Lymphocytes # (1.0-4.8) k/uL Sodium 131 L (137-145) mmol/L Chloride (98-107) mmol/L Creatinine 0.59 L (0.66-1.25) mg/dL Glucose (74-99) mg/dL Total Bilirubin 1.4 H (0.2-1.3) mg/dL Total Protein 5.8 L (6.3-8.2) g/dL Albumin 3.1 L (3.5-5.0) g/dL Thrombosis Risk Factor Assmnt - Choose All That Apply Each Risk Factor Represents 2 Points: Age 61-74 years Thrombosis Risk Factor Assessment Total Risk Factor Score: 2 Thrombosis Risk Factor Assessment Level: Low Risk Assessment and Plan Time with Patient: Less than 30
[2022-01-29 08:41] LABS: HCT 31.4 % (39.6-50.0); HGB 10.4 g/dL (13.0-17.0); MCH 33.8 pg (27.0-32.0); MCHC 33.1 g/dL (32.0-37.0); MCV 101.9 fL (80.0-97.0); Mean Platelet Volume 10.4 fL (9.5-12.2); NRBC Per 100 WBC 0 /100 WBCS (0.0-0.0); Platelet Count 108 X 10*3/uL (140-440); RBC 3.08 X 10*6/uL (4.40-5.60); RDW 11.3 % (11.5-14.5); WBC 3.58 X 10*3/uL (4.50-10.00)
[2022-01-29 09:10] LABS: African American GFR (CKD) 124.7 (60.0-200.0); Albumin 3.1 g/dL (3.8-4.9); Albumin/Globulin Ratio 1.5 (1.60-3.17); Anion Gap 8.2 mmol/L (10.00-18.00); BUN/Creat Ratio 7.41 Ratio (12.00-20.00); Blood Urea Nitrogen 3.9 mg/dL (9.0-27.0); Calcium 8.3 mg/dL (8.7-10.3); Globulin 2.1 g/dL (1.6-3.3); Non-African American GFR(CKD) 107.6 (60.0-200.0); Potassium 3.3 mmol/L (3.5-5.5); Total Bilirubin 1.2 mg/dL (0.30-1.20); Total Protein 5.2 g/dL (6.2-8.2)
[2022-01-29] MEDS: THIAMINE 100 MG TAB PO SCH ×2 (09:35→18:04)
[2022-01-29] MEDS: PANTOPRAZOLE 40 MG/10 ML VIAL IVP SCH ×2 (09:35→20:12)
[2022-01-29] MEDS: SODIUM CHLORIDE 0.9% 1,000 ML IV SCH (09:39)
[2022-01-29] MEDS ORDERED: LACTATED RINGERS 1,000 ML IV ONE (14:21)
[2022-01-29] MEDS ORDERED: LIDOCAINE 2% INJ 20 MG/ML (2 ML VIAL) ONE (14:22)
[2022-01-29] MEDS ORDERED: PROPOFOL 10 MG/ML 20 ML VIAL IV ONE (14:22)
--- NOTE | 2022-01-29 14:43 | P.PCN ---
Date of Procedure: 01/29/22 Procedure(s) Performed: BRIEF HISTORY: Patient is a 71-year-old, pleasant, male admitted hospital with black tarry stools for the last 2 days' duration. He scheduled for an upper endoscopy to evaluate further.. PROCEDURE PERFORMED: Esophagogastroduodenoscopy. PREOPERATIVE DIAGNOSIS: Acute upper GI bleed. IV sedation per anesthesia. PROCEDURE: After informed consent was obtained, the patient was brought into the endoscopy unit. IV sedation was administered by Anesthesia under continuous monitoring. Initially the Olympus GIF-140 video endoscope was inserted into the mouth. Esophagus intubated without any difficulty. It was gradually advanced into the stomach and duodenum and carefully examined. The bulb and the second part of the duodenum appeared normal. The scope at this time was withdrawn to the stomach, adequately insufflated with air, and upon careful examination, mucosa of the antrum, body, cardia and the fundus appeared normal. The scope was then withdrawn into the esophagus. The GE junction was located at 39 cm from the incisors. Moderate size hiatal hernia noted. There were linear ulcerations in the distal esophagus consistent with LA grade B reflux esophagitis. The rest of the esophagus appeared normal. The the patient tolerated the procedure well. IMPRESSION: 1. Linear ulcerations in the distal esophagus consistent with LA grade B reflux esophagitis. 2. Moderate size hiatal hernia.. RECOMMENDATIONS: The findings of this examination were discussed with the p atient as well as his family. He was advised to continue with Protonix 40 mg twice daily and follow antireflux measures. Diet will be advanced as tolerated..
--- NOTE | 2022-01-29 18:57 | P.PN ---
Subjective This is a pleasant 71-year-old male who has history of daily alcohol use for many years. He denies daily drinking, at the bedside states he drinks on average 20 tall beers daily, he states he starts drinking around 0600 and drinks until he goes to bed. Patient is a poor historian and his provides most of the history at the bedside. He presents with one-day history of black tarry stool with concern for upper GI bleed. States he was working out in the garage and had a large dark liquidy bowel movement which he was incontinent of. He had one last night and this morning also. He denies shortness of breath, no chest pain. No hematemesis, no coffee ground emesis. No abdominal pain reported, no epigastric burning or discomfort either. He has no history of previous GI bleed, reports no liver disease. No significant medical history noted. He has quit smoking about 40 years ago. He was started on IV Protonix and admitted for work up regarding possible upper GI bleed and GI services has been consulted. Patient is also started on CIWA protocol and will be monitored for acute alcohol withdrawal. He denies history of withdrawal. Diagnostics on admission; EKG is showing sinus tachycardia with heart rate 100, QT interval 406. There are no significant ST or T wave changes. hemoglobin is 14.8 and is now 11.9. Platelets have also dropped from 238 down to 151. Sodium is 131 it was 123 at admission, total bili 1.4. Ammonia less than 9. Occult positive. He is afebrile, heart rate 72, blood pressure 137/83, 97% room air. 01/29/2022 this is a pleasant 71 years old male who presents with upper GI bleed. He is also drinks alcohol daily. Patient currently denies abdominal pain or chest pain. He is nothing by mouth today for EGD which results showing Dear ulceration in the distal esophagus suspicious for reflux esophagitis with moderate hiatal hernia. Patient is currently on Protonix 40 mg twice daily intravenously. Also he is on normal saline 75 mL/h but he was not getting it this morning and during the procedure. Sodium down to 128 today. We'll keep monitoring. Patient placed on fluid restriction, discussed with the staff Patient was adamant not to go to rehab but to go home with home care, risks and benefits are explained. Granddaughter at bedside and all questions answered to their satisfaction Objective - Vital Signs Vital signs: Vital Signs Temp 98.3 F 01/29/22 08:00 Pulse 70 01/29/22 08:00 Resp 17 01/29/22 08:00 BP 136/80 01/29/22 08:00 Pulse Ox 100 01/29/22 08:00 FiO2 Intake & Output 01/28/22 01/29/22 01/29/22 18:59 06:59 18:59 Intake Total 800 Balance 800 Intake: Intake, IV Titration 800 Amount Sodium Chloride 0.9% 1, 800 000 ml @ 75 mls/hr IV . [id number] [facility] Rx#:[id number] Other: Voiding Method Toilet # Voids 6 1 # Bowel Movements 6 - Exam -GENERAL: The patient is alert and oriented x3, not in any acute distress. Well developed, well nourished. Generally weak HEENT: Pupils are round and equally reacting to light. EOMI. No scleral icterus. No conjunctival pallor. Normocephalic, atraumatic. No pharyngeal erythema. No thyromegaly. CARDIOVASCULAR: S1 and S2 present. No murmurs, rubs, or gallops. PULMONARY: Chest is clear to auscultation, no wheezing or crackles. ABDOMEN: Soft, nontender, nondistended, normoactive bowel sounds. No palpable organomegaly. MUSCULOSKELETAL: No joint swelling or deformity. EXTREMITIES: No cyanosis, clubbing, or pedal edema. NEUROLOGICAL: Gross neurological examination did not reveal any focal deficits. SKIN: No rashes. no petechiae. - Labs CBC & Chem 7: 01/29/22 05:34 01/29/22 05:34 Labs: Abnormal Lab Results - Last 24 Hours (Table) 01/29/22 01/29/22 Range/Units 05:34 05:34 WBC 3.58 L (4.50-10.00) X 10*3/uL RBC 3.08 L (4.40-5.60) X 10*6/uL Hgb 10.4 L (13.0-17.0) g/dL Hct 31.4 L (39.6-50.0) % MCV 101.9 H (80.0-97.0) fL MCH 33.8 H (27.0-32.0) pg RDW 11.3 L (11.5-14.5) % Plt Count 108 L (140-440) X 10*3/uL Sodium 128 L (135-145) mmol/L Potassium 3.3 L (3.5-5.5) mmol/L Anion Gap 8.20 L (10.00-18.00) mmol/L BUN 3.9 L (9.0-27.0) mg/dL Creatinine 0.5 L (0.6-1.5) mg/dL BUN/Creatinine Ratio 7.41 L (12.00-20.00) Ratio Calcium 8.3 L (8.7-10.3) mg/dL Total Protein 5.2 L (6.2-8.2) g/dL Albumin 3.1 L (3.8-4.9) g/dL Albumin/Globulin Ratio 1.50 L (1.60-3.17) g/dL Assessment and Plan Assessment: Melenic stool possible upper GI bleed, secondary to reflux esophagitis and linear ulceration per EGD on 01/29 Hyponatremia most likely chronic alcohol use drinks beer. Could be a beer p otomania. Anemia possible blood loss from upper GI bleed Chronic daily alcohol use Alcohol abuse at-risk of alcohol withdrawal Hypertension with no history Former smoker Generalized weakness, patient declined in rehab Plan: This is a pleasant 71 years old male who presents with GI bleed secondary to reflux esophagitis Continue with Protonix twice daily GI team evaluated the patient, he is status post EGD on 01/29 Continue with Ativan as needed Continue with normal saline and monitor sodium Labs and medication were reviewed.. Continue same treatment. Continue with symptomatic treatment. Resume home medication. Monitor lytes and vitals. DVT and GI prophylaxis. Further recommendations as per clinical course of the patient DVT prophylaxis: no Subcutaneous heparin for GI bleed GI Prophylaxis: Ppi PT/OT: Patient declined recommended subacute rehab for him Prognosis is guarded
[2022-01-30] MEDS: SODIUM CHLORIDE 0.9% 1,000 ML IV SCH (02:34)
[2022-01-30 08:34] VITALS: BP 127/79; PULSE 80; RESP 17; TEMP 97.8
[2022-01-30] MEDS: THIAMINE 100 MG TAB PO SCH (08:42)
[2022-01-30] MEDS: PANTOPRAZOLE 40 MG/10 ML VIAL IVP SCH (08:42)
[2022-01-30 08:52] LABS: Basophils # (A) 0.02 X 10*3/uL (0.00-0.10); Basophils % (A) 0.5 %; Eosinophils # (A) 0.04 X 10*3/uL (0.04-0.35); HCT 32.4 % (39.6-50.0); HGB 11.4 g/dL (13.0-17.0); Immature Grans, Automated 0.5 %; Lymphocytes % (A) 17.5 %; MCH 35.2 pg (27.0-32.0); MCHC 35.2 g/dL (32.0-37.0); Mean Platelet Volume 10.4 fL (9.5-12.2); Monocytes # (A) 0.26 X 10*3/uL (0.20-1.00); Monocytes % (A) 6.5 %; NRBC Per 100 WBC 0 /100 WBCS (0.0-0.0); Neutrophils # (A) 2.95 X 10*3/uL (1.80-7.70); Platelet Count 112 X 10*3/uL (140-440); RBC 3.24 X 10*6/uL (4.40-5.60); RDW 11.2 % (11.5-14.5); WBC 3.99 X 10*3/uL (4.50-10.00)
[2022-01-30 09:09] LABS: African American GFR (CKD) 118.1 (60.0-200.0); Anion Gap 11.2 mmol/L (10.00-18.00); BUN/Creat Ratio 3.17 Ratio (12.00-20.00); Blood Urea Nitrogen 1.9 mg/dL (9.0-27.0); Calcium 8.5 mg/dL (8.7-10.3); Carbon Dioxide 20.8 mmol/L (20.0-27.5); Magnesium 1.9 mg/dL (1.5-2.4); Non-African American GFR(CKD) 101.9 (60.0-200.0); Potassium 3.4 mmol/L (3.5-5.5)
--- NOTE | 2022-01-30 23:03 | P.DS ---
Providers Date of admission: 01/27/22 17:20 Attending physician: Hill Ernst Consults: 01/27/22 17:19 Consult Physician Routine Consulting Provider: Hedy Noyola Consult Reason/Comments: GI bleed Do you want consulting provider notified?: Yes Primary care physician: Srinath Stevenson [facility] Course: Please note patient was not discharged but he left AGAINST MEDICAL ADVICE Diagnoses: Melenic stool possible upper GI bleed, secondary to reflux esophagitis and linear ulceration per EGD on 01/29, secondary to alcohol effect Hyponatremia most likely chronic alcohol use drinks beer. Could be a beer potomania. Anemia possible blood loss from upper GI bleed Chronic daily alcohol use Alcohol abuse at-risk of alcohol withdrawal Hypertension with no history Former smoker Generalized weakness, patient declined in rehab Hospital course: This is a pleasant 71-year-old male who has history of daily alcohol use for many years. He denies daily drinking, at the bedside states he drinks on average 20 tall beers daily, he states he starts drinking around 0600 and drinks until he goes to bed. Patient is a poor historian and his provides most of the history at the bedside. He presents with one-day history of black tarry stool with concern for upper GI bleed. States he was working out in the garage and had a large dark liquidy bowel movement which he was incontinent of. He had one last night and this morning also. He denies shortness of breath, no chest pain. No hematemesis, no coffee ground emesis. No abdominal pain reported, no epigastric burning or discomfort either. He has no history of previous GI bleed, reports no liver disease. No significant medical history noted. He has quit smoking about 40 years ago. He was started on IV Protonix and admitted for work up regarding possible upper GI bleed and GI services has been consulted. Patient is also started on CIWA protocol and will be monitored for acute alcohol withdrawal. He denies history of withdrawal. Diagnostics on admission; EKG is showing sinus tachycardia with heart rate 100, QT interval 406. There are no significant ST or T wave changes. hemoglobin is 14.8 and is now 11.9. Platelets have also dropped from 238 down to 151. Sodium is 131 it was 123 at admission, total bili 1.4. Ammonia less than 9. Occult positive. He is afebrile, heart rate 72, blood pressure 137/83, 97% room air. 01/29/2022 this is a pleasant 71 years old male who presents with upper GI bleed. He is also drinks alcohol daily. Patient currently denies abdominal pain or chest pain. He is nothing by mouth t kevin for EGD which results showing Dear ulceration in the distal esophagus suspicious for reflux esophagitis with moderate hiatal hernia. Patient is currently on Protonix 40 mg twice daily intravenously. Also he is on normal saline 75 mL/h but he was not getting it this morning and during the procedure. Sodium down to 128 today. We'll keep monitoring. Patient placed on fluid restriction, discussed with the staff Patient was adamant not to go to rehab but to go home with home care, risks and benefits are explained. Granddaughter at bedside and all questions answered to their satisfaction 01/30/2022 Patient today was, awake and alert and he is oriented to time, place and person and he has insight into his illness, he denies any chest pain or dyspnea, no abdominal pain or vomiting or diarrhea. And he is hemodynamically stable. was at bedside Patient states he is well, During the interview patient asked about his discharge, and he did not want to wait till morning blood test results to come back and wanted to leave right away, eventually patient decided to leave AMA, was at bedside. Risks and benefits of having alternatives are explained for him, I asked the patient if there is anything I can do to prevent him from leaving AMA and he declined. Patient declines active symptoms of depression, no hopeless this and help assess, no suicidal ideation, no hallucination. Based upon my evaluation patient has capacity to make medical decision. He told me his to drive. I recommended patient up with PCP as soon as possible RV change his mind to come back to the hospital. Physical exam Gen: patient is a AAOx3, no distress CVS: S1-S2, RRR, no murmur Lungs: B/L CTA, no wheezing Abdomen: soft, no distention, no tenderness, positive bowel sounds Extremity: no leg edema or induration Time spent more than 35 minutes Patient Condition at Discharge: Stable Plan - Discharge Summary Discharge Rx Participant: Yes New Discharge Prescriptions: No Action No Known Home Medications Discharge Medication List No Known Home Medications 05/19/20 [History] Follow up Appointment(s)/Referral(s): Srinath Stevenson DO [Primary Care Provider] - 1-2 days Discharge Disposition: Left Against Medical Advice
== END 2022-01-30 11:13 | disposition left against medical advice (07) | DRG 368 ==
LOC: EC 14:16 → 4SSUR 17:20
PROVIDERS: ADMIT Hospitalist; ATTEND Hospitalist
PROC: 0DJ08ZZ Inspection of Upper Intestinal Tract, Via Natural or Artificial Opening Endoscopic (ICD-10-PCS; principal; 2022-01-29 12:50)
DX: K21.01 Gastro-esophageal reflux disease with esophagitis, with bleeding (principal); K22.11 Ulcer of esophagus with bleeding; E87.1 Hypo-osmolality and hyponatremia; F10.10 Alcohol abuse, uncomplicated; D50.0 Iron deficiency anemia secondary to blood loss (chronic); R15.9 Full incontinence of feces; I10 Essential (primary) hypertension; K44.9 Diaphragmatic hernia without obstruction or gangrene; Z53.29 Procedure and treatment not carried out because of patient's decision for other reasons; Z86.010 Personal history of colon polyps; Z87.891 Personal history of nicotine dependence; Z87.19 Personal history of other diseases of the digestive system
CPT/HCPCS: 36415; 43235; 80048; 80053; 80320; 82140; 82272; 83735; 84484; 85025; 85027; 85610; 85730; 86850; 86900; 86901; 93005; 96372; 96374; 99285

== ENCOUNTER 2022-01-31 12:20 | Emergency (ER) | payer OTHER, MEDICARE ==
[2022-01-31 12:40] VITALS: BP 132/82; PULSE 84; RESP 18; TEMP 99
[2022-01-31 12:56] LABS: Appearance,Urine Clear (Clear); Bilirubin,Urine Negative (Negative); Blood,Urine Negative (Negative); Color,Urine Yellow; Glucose,Urine (UA) Negative (Negative); Ketones,Urine Negative (Negative); Leukocyte Esterase,Urine Negative (Negative); Nitrite,Urine Negative (Negative); PH, Urine 5.5 (5.0-8.0); Protein,Urine Negative (Negative); Specific Gravity,Urine 1.012 (1.001-1.035); Urobilinogen,Urine <2.0 mg/dL (<2.0)
--- NOTE | 2022-01-31 13:40 | ED ---
GI Bleed HPI - General Chief complaint: GI Bleed Stated complaint: Low Hemoglobin Time Seen by Provider: 01/31/22 13:18 Source: patient, family Mode of arrival: EMS Limitations: no limitations - History of Present Illness Initial comments: Patient is a 71-year-old male with past medical history significant for alcohol use disorder who presents to the emergency department for evaluation of low hemoglobin. Patient was recently evaluated in the hospital from 01/27 to 01/30 for melanotic stools. Patient initially presented with a normal hemoglobin at 14.8 which then dropped to 11.9. Patient had an EGD which showed linear ulcerations with esophagitis. Yesterday there was plan to discharge this morning if hemoglobin remained stable however patient left AGAINST MEDICAL ADVICE. Patient's daughter states that one of their family members works here at [facility] and reviewed his hemoglobin level today. She was told level was 8.0. Patient and family then came to the emergency department. Patient states he feels well. He denies fever, chills, lightheadedness, dizziness, chest pain, shortness of breath, abdominal pain, nausea, vomiting, diarrhea, and blood in the stool. Patient's daughter states patient drinks several beers a day. Last drink was this morning. - Related Data Previous Rx's Medication Instructions Recorded Pantoprazole [Protonix] 40 mg PO BID 7 Days #14 tab 01/31/22 Allergies Allergy/AdvReac Type Severity Reaction Status Date / Time No Known Allergies Allergy Verified 01/31/22 12:40 Review of Systems ROS Statement: Those systems with pertinent positive or pertinent negative responses have been documented in the HPI. ROS Other: All systems not noted in ROS Statement are negative. Past Medical History Past Medical History: No Reported History History of Any Multi-Drug Resistant Organisms: None Reported Past Surgical History: No Surgical Hx Reported Past Anesthesia/Blood Transfusion Reactions: No Reported Reaction Past Psychological History: No Psychological Hx Reported Smoking Status: Former smoker Past Alcohol Use History: Abuse, Daily, Heavy Past Drug Use History: None Reported - Past Family History Mother Family Medical History: No Reported History General Exam Limitations: no limitations General appearance: alert, in no apparent distress Head exam: Present: atraumatic, normocephalic, normal inspection Respiratory exam: Present: normal lung sounds bilaterally. Absent: respiratory distress, wheezes, rales, rhonchi, stridor Cardiovascular Exam: Present: regular rate, normal rhythm, normal heart sounds. Absent: systolic murmur, diastolic murmur, rubs, gallop, clicks GI/Abdominal exam: Present: soft, normal bowel sounds. Absent: distended, tenderness, guarding, rebound, rigid Neurological exam: Present: alert, oriented X3, CN II-XII intact Psychiatric exam: Present: normal affect, normal mood Skin exam: Present: warm, dry, intact, normal color. Absent: rash Course Vital Signs 01/31/22 12:35 Temperature 99.0 F Pulse Rate 84 Respiratory 18 Rate Blood Pressure 132/82 O2 Sat by Pulse 98 Oximetry Medical Decision Making - Medical Decision Making This is a 71-year-old male who presents to the emergency department with concern for low hemoglobin. Thorough history and examination were performed. Most recent labs reviewed, obtained yesterday. Hemoglobin is 11.4, increased from 10.4. Platelets are low however have increased from 108 to 112. I will obtain laboratory studies today. Hemoglobin is stable at 11.7. Platelet count is 122. Case discussed with patient. With stable vital signs, lack of symptoms, and stable hemoglobin, discharge with GI follow up is appropriate. I did review case with Dr. Pedro who agrees with plan. I will send patient home with protonix. Patient informed that he will likely have to keep taking this medication if he continues to drink alcohol. GI follow-up is very important. We discussed alcohol cessation in detail. I provided [place] for a resource to quit. Return parameters discussed. Patient and daughter verbalize understanding and are agreeable to this plan. Dr. Harris is my attending. - Lab Data Result diagrams: 01/31/22 13:22 01/31/22 13:22 Lab Results 01/31/22 01/31/22 01/31/22 Range/Units 12:50 13:22 13:22 WBC 3.8 (3.8-10.6) k/uL RBC 3.29 L (4.30-5.90) m/uL Hgb 11.7 L (13.0-17.5) gm/dL Hct 34.6 L (39.0-53.0) % MCV 105.2 H (80.0-100.0) fL MCH 35.6 H (25.0-35.0) pg MCHC 33.8 (31.0-37.0) g/dL RDW 11.3 L (11.5-15.5) % Plt Count 122 L (150-450) k/uL MPV 7.9 Neutrophils % 72 % Lymphocytes % 18 % Monocytes % 6 % Eosinophils % 1 % Basophils % 1 % Neutrophils # 2.7 (1.3-7.7) k/uL Lymphocytes # 0.7 L (1.0-4.8) k/uL Monocytes # 0.2 (0-1.0) k/uL Eosinophils # 0.0 (0-0.7) k/uL Basophils # 0.0 (0-0.2) k/uL Macrocytosis Slight APTT 25.1 (22.0-30.0) sec Sodium (137-145) mmol/L Potassium (3.5-5.1) mmol/L Chloride (98-107) mmol/L Carbon Dioxide (22-30) mmol/L Anion Gap mmol/L BUN (9-20) mg/dL Creatinine (0.66-1.25) mg/dL Est GFR (CKD-EPI)AfAm (>60 ml/min/1.73 sqM) Est GFR (CKD-EPI)NonAf (>60 ml/min/1.73 sqM) Glucose (74-99) mg/dL Calcium (8.4-10.2) mg/dL Total Bilirubin (0.2-1.3) mg/dL AST (17-59) U/L ALT (4-49) U/L Alkaline Phosphatase (38-126) U/L Troponin I (0.000-0.034) ng/mL Total Protein (6.3-8.2) g/dL Albumin (3.5-5.0) g/dL Urine Color Yellow Urine Appearance Clear (Clear) Urine pH 5.5 (5.0-8.0) Ur Specific [place] 1.012 (1.001-1.035) Urine Protein Negative (Negative) Urine Glucose (UA) Negative (Negative) Urine Ketones Negative (Negative) Urine Blood Negative (Negative) Urine Nitrite Negative (Negative) Urine Bilirubin Negative (Negative) Urine Urobilinogen <2.0 (<2.0) mg/dL Ur Leukocyte Esterase Negative (Negative) 01/31/22 01/31/22 Range/Units 13:22 13:22 WBC (3.8-10.6) k/uL RBC (4.30-5.90) m/uL Hgb (13.0-17.5) gm/dL Hct (39.0-53.0) % MCV (80.0-100.0) fL MCH (25.0-35.0) pg MCHC (31.0-37.0) g/dL RDW (11.5-15.5) % Plt Count (150-450) k/uL MPV Neutrophils % % Lymphocytes % % Monocytes % % Eosinophils % % Basophils % % Neutrophils # (1.3-7.7) k/uL Lymphocytes # (1.0-4.8) k/uL Monocytes # (0-1.0) k/uL Eosinophils # (0-0.7) k/uL Basophils # (0-0.2) k/uL Macrocytosis APTT (22.0-30.0) sec Sodium 128 L (137-145) mmol/L Potassium 3.7 (3.5-5.1) mmol/L Chloride 100 (98-107) mmol/L Carbon Dioxide 22 (22-30) mmol/L Anion Gap 6 mmol/L BUN 3 L (9-20) mg/dL Creatinine 0.60 L (0.66-1.25) mg/dL Est GFR (CKD-EPI)AfAm >90 (>60 ml/min/1.73 sqM) Est GFR (CKD-EPI)NonAf >90 (>60 ml/min/1.73 sqM) Glucose 89 (74-99) mg/dL Calcium 8.6 (8.4-10.2) mg/dL Total Bilirubin 0.6 (0.2-1.3) mg/dL AST 38 (17-59) U/L ALT 19 (4-49) U/L Alkaline Phosphatase 74 (38-126) U/L Troponin I <0.012 (0.000-0.034) ng/mL Total Protein 6.5 (6.3-8.2) g/dL Albumin 3.7 (3.5-5.0) g/dL Urine Color Urine Appearance (Clear) Urine pH (5.0-8.0) Ur Specific [place] (1.001-1.035) Urine Protein (Negative) Urine Glucose (UA) (Negative) Urine Ketones (Negative) Urine Blood (Negative) Urine Nitrite (Negative) Urine Bilirubin (Negative) Urine Urobilinogen (<2.0) mg/dL Ur Leukocyte Esterase (Negative) Disposition Clinical Impression: Esophagitis, Ulcer of esophagus, Alcohol abuse, Low hemoglobin Disposition: HOME SELF-CARE Condition: Good Instructions (If sedation given, give patient instructions): Gastrointestinal Bleeding (ED), Abuse of Alcohol (ED), Esophagitis (ED) Additional Instructions: Take protonix as prescribed. Drinking alcohol will worsen the ulcers and inflammation of your esophagus. It is very important you stop drinking alcohol. This can be difficult to do on your own. I provided you a resource to a rehab who can assist with quitting. Follow-up with GI specialist in 1-2 days. Return to the emergency department if you experience new, concerning, or worsening symptoms. Prescriptions: Pantoprazole [Protonix] 40 mg PO BID 7 Days #14 tab Is patient prescribed a controlled substance at d/c from ED?: No Referrals: Srinath Stevenson DO [Primary Care Provider] - 1-2 days Hedy Noyola MD [STAFF PHYSICIAN] - 1-[facility] days [facility] [Outside] - 1-2 days Time of Disposition: 13:45
[2022-01-31 14:05] LABS: Basophils % (A) 1 %; Eosinophils % (A) 1 %; HCT 34.6 % (39.0-53.0); HGB 11.7 gm/dL (13.0-17.5); Lymphocytes # (A) 0.7 k/uL (1.0-4.8); Lymphocytes % (A) 18 %; MCH 35.6 pg (25.0-35.0); MCHC 33.8 g/dL (31.0-37.0); MCV 105.2 fL (80.0-100.0); Macrocytosis Slight; Mean Platelet Volume 7.9; Monocytes # (A) 0.2 k/uL (0-1.0); Monocytes % (A) 6 %; Neutrophils # (A) 2.7 k/uL (1.3-7.7); Neutrophils % (A) 72 %; Platelet Count 122 k/uL (150-450); RBC 3.29 m/uL (4.30-5.90); RDW 11.3 % (11.5-15.5); WBC 3.8 k/uL (3.8-10.6)
[2022-01-31 14:13] LABS: ALT 19 U/L (4-49); AST 38 U/L (17-59); African American GFR (CKD) >90 (>60 ml/min/1.73 sqM); Albumin 3.7 g/dL (3.5-5.0); Alkaline Phosphatase 74 U/L (38-126); Anion Gap 6 mmol/L; Blood Urea Nitrogen 3 mg/dL (9-20); Calcium 8.6 mg/dL (8.4-10.2); Carbon Dioxide 22 mmol/L (22-30); Chloride 100 mmol/L (98-107); Glucose 89 mg/dL (74-99); Non-African American GFR(CKD) >90 (>60 ml/min/1.73 sqM); Potassium 3.7 mmol/L (3.5-5.1); Sodium 128 mmol/L (137-145); Total Bilirubin 0.6 mg/dL (0.2-1.3); Total Protein 6.5 g/dL (6.3-8.2)
== END 2022-01-31 15:04 | disposition home or self-care (01) ==
LOC: EC 12:20
DX: K20.90 Esophagitis, unspecified without bleeding (principal); F10.10 Alcohol abuse, uncomplicated; D64.9 Anemia, unspecified; Z87.891 Personal history of nicotine dependence; Z53.29 Procedure and treatment not carried out because of patient's decision for other reasons
CPT/HCPCS: 36415; 80053; 81003; 84484; 85025; 85730; 99284

== ENCOUNTER 2024-05-21 16:39 | Emergency (ER) | payer OTHER, MEDICARE ==
[2024-05-21 16:46] VITALS: RESP 18
[2024-05-21 17:22] LABS: Basophils # (A) 0.1 k/uL (0-0.2); Basophils % (A) 1 %; Eosinophils # (A) 0.1 k/uL (0-0.7); Eosinophils % (A) 1 %; HCT 42.6 % (39.0-53.0); HGB 14.3 gm/dL (13.0-17.5); Lymphocytes # (A) 1.8 k/uL (1.0-4.8); Lymphocytes % (A) 22 %; MCH 34.5 pg (25.0-35.0); MCHC 33.6 g/dL (31.0-37.0); MCV 102.6 fL (80.0-100.0); Macrocytosis Slight; Mean Platelet Volume 7.3; Monocytes # (A) 0.4 k/uL (0-1.0); Monocytes % (A) 5 %; Neutrophils # (A) 5.6 k/uL (1.3-7.7); Neutrophils % (A) 70 %; Platelet Count 185 k/uL (150-450); RBC 4.15 m/uL (4.30-5.90); WBC 8.1 k/uL (3.8-10.6)
[2024-05-21 17:39] LABS: ALT 16 U/L (4-49); AST 37 U/L (17-59); African American GFR (CKD) >90 (>60 ml/min/1.73 sqM); Albumin 3.8 g/dL (3.5-5.0); Alkaline Phosphatase 80 U/L (38-126); Anion Gap 4 mmol/L; Blood Urea Nitrogen 4 mg/dL (9-20); Calcium 8.8 mg/dL (8.4-10.2); Carbon Dioxide 25 mmol/L (22-30); Chloride 105 mmol/L (98-107); Glucose 98 mg/dL (74-99); Non-African American GFR(CKD) >90 (>60 ml/min/1.73 sqM); Potassium 4.3 mmol/L (3.5-5.1); Sodium 134 mmol/L (137-145); Total Bilirubin 0.6 mg/dL (0.2-1.3)
--- NOTE | 2024-05-21 18:51 | ED ---
Recheck HPI - General Chief Complaint: Recheck/Abnormal Lab/Rx Stated Complaint: high potassium Time Seen by Provider: 05/21/24 18:50 Source: patient, RN notes reviewed Mode of arrival: ambulatory Limitations: no limitations - History of Present Illness Initial Comments: 74-year-old male sent by [facility] for elevated potassium. Patient denies any current symptoms. States he had labs drawn for routine care appointment next week and was called regarding elevated potassium and advised to go to the ER. Denies chest pain, shortness of breath, palpitations. - Related Data Previous Rx's Medication Instructions Recorded Pantoprazole [Protonix] 40 mg PO BID 7 Days #14 tab 01/31/22 Allergies Allergy/AdvReac Type Severity Reaction Status Date / Time No Known Allergies Allergy Verified 05/21/24 16:46 Review of Systems ROS Statement: Those systems with pertinent positive or pertinent negative responses have been documented in the HPI. ROS Other: All systems not noted in ROS Statement are negative. Past Medical History Past Medical History: No Reported History History of Any Multi-Drug Resistant Organisms: None Reported Past Surgical History: No Surgical Hx Reported Past Anesthesia/Blood Transfusion Reactions: No Reported Reaction Past Psychological History: No Psychological Hx Reported Smoking Status: Former smoker Past Alcohol Use History: Abuse, Daily, Heavy Past Drug Use History: None Reported - Past Family History Mother Family Medical History: No Reported History General Exam Limitations: no limitations General appearance: alert, in no apparent distress Head exam: Present: atraumatic, normocephalic, normal inspection Eye exam: Present: normal appearance, PERRL, EOMI. Absent: scleral icterus, conjunctival injection, periorbital swelling Neurological exam: Present: alert, oriented X3 Psychiatric exam: Present: normal affect, normal mood Skin exam: Present: warm, dry, intact, normal color. Absent: rash Course Vital Signs 05/21/24 05/21/24 16:44 18:58 Temperature 98.2 F 98.0 F Pulse Rate 85 80 Respiratory 18 18 Rate Blood Pressure 138/81 136/80 O2 Sat by Pulse 99 97 Oximetry Medical Decision Making - Medical Decision Making Was pt. sent in by a medical professional or institution (, PA, ORTHOTICS ASSISTANT, urgent care, hospital, or care home...) When possible be specific @ -No Did you speak to anyone other than the patient for history (EMS, parent, family, police, friend...)? What history was obtained from this source @ -No Did you review nursing and triage notes (agree or disagree)? Why? @ -I reviewed and agree with nursing and triage notes Were old charts reviewed (outside hosp., previous admission, EMS record, old EKG, old radiological studies, urgent care reports/EKG's, care home records)? Report findings @ -No old charts were reviewed Differential Diagnosis (chest pain, altered mental status, abdominal pain women, abdominal pain men, vaginal bleeding, weakness, fever, dyspnea, syncope, headache, dizziness, GI bleed, back pain, seizure, CVA, palpatations, mental health, musculoskeletal)? @ -Not applicable EKG interpreted by me (3pts min.). @ -As above X-rays interpreted by me (1pt min.). @ -None done CT interpreted by me (1pt min.). @ -None done U/S interpreted by me (1pt. min.). @ -None done What testing was considered but not performed or refused? (CT, X-rays, U/S, labs)? Why? @ -None What meds were considered but not given or refused? Why? @ -None Did you discuss the management of the patient with other professionals (professionals i.e. , PA, ORTHOTICS ASSISTANT, lab, RT, psych nurse, manager social media, dental aide, teacher, consumer safety officer, disease case manager)? Give summary @ -No Was smoking cessation discussed for >3mins.? @ -No Was critical care preformed (if so, how long)? @ -No Were there social determinants of health that impacted care today? How? (Homelessness, low income, unemployed, alcoholism, drug addiction, transportation, low edu. Level, literacy, decrease access to med. care, [facility], rehab)? @ -No Was there de-escalation of care discussed even if they declined (Discuss DNR or withdrawal of care, Hospice)? DNR status @ -No What co-morbidities impacted this encounter? (DM, HTN, Smoking, COPD, CAD, Cancer, CVA, ARF, Chemo, Hep., AIDS, mental health diagnosis, sleep apnea, morbid obesity)? @ -None Was patient admitted / discharged? Hospital course, mention meds given and route, prescriptions, significant lab abnormalities, going to OR and other pertinent info. @ -Discharge. This is a 74-year-old male sent by PCP for elevated potassium. Patient is asymptomatic. Vital signs within acceptable limits. EKG reveals normal sinus rhythm with no ST changes. CBC, CMP unremarkable, potassium normal at 4.3. Negative results discussed with patient. Advised close follow-up with PCP and return precautions discussed. Case was discussed with my ED attending Dr. Charlton. Patient discharged in stable condition. Undiagnosed new problem with uncertain prognosis? @ -No Drug Therapy requiring intensive monitoring for toxicity (Heparin, Nitro, Insulin, Cardizem)? @ -No Were any procedures done? @ -No Diagnosis/symptom? @ -Abnormal lab value Acute, or Chronic, or Acute on Chronic? @ -Acute Uncomplicated (without systemic symptoms) or Complicated (systemic symptoms)? @ -Uncomplicated Side effects of treatment? @ -No Exacerbation, Progression, or Severe Exacerbation? @ -No Poses a threat to life or bodily function? How? (Chest pain, [place], [place], pneumonia, PE, COPD, DKA, ARF, appy, cholecystitis, CVA, Diverticulitis, Homicidal, Suicidal, threat to staff... and all critical care pts) @ -No - Lab Data Result diagrams: 05/21/24 17:05 05/21/24 17:05 Lab Results 05/21/24 05/21/24 Range/Units 17:05 17:05 WBC 8.1 (3.8-10.6) k/uL RBC 4.15 L (4.30-5.90) m/uL Hgb 14.3 (13.0-17.5) gm/dL Hct 42.6 (39.0-53.0) % MCV 102.6 H (80.0-100.0) fL MCH 34.5 (25.0-35.0) pg MCHC 33.6 (31.0-37.0) g/dL RDW 12.0 (11.5-15.5) % Plt Count 185 (150-450) k/uL MPV 7.3 Neutrophils % 70 % Lymphocytes % 22 % Monocytes % 5 % Eosinophils % 1 % Basophils % 1 % Neutrophils # 5.6 (1.3-7.7) k/uL Lymphocytes # 1.8 (1.0-4.8) k/uL Monocytes # 0.4 (0-1.0) k/uL Eosinophils # 0.1 (0-0.7) k/uL Basophils # 0.1 (0-0.2) k/uL Macrocytosis Slight Sodium 134 L (137-145) mmol/L Potassium 4.3 (3.5-5.1) mmol/L Chloride 105 (98-107) mmol/L Carbon Dioxide 25 (22-30) mmol/L Anion Gap 4 mmol/L BUN 4 L (9-20) mg/dL Creatinine 0.61 L (0.66-1.25) mg/dL Est GFR (CKD-EPI)AfAm >90 (>60 ml/min/1.73 sqM) Est GFR (CKD-EPI)NonAf >90 (>60 ml/min/1.73 sqM) Glucose 98 (74-99) mg/dL Calcium 8.8 (8.4-10.2) mg/dL Total Bilirubin 0.6 (0.2-1.3) mg/dL AST 37 (17-59) U/L ALT 16 (4-49) U/L Alkaline Phosphatase 80 (38-126) U/L Total Protein 7.0 (6.3-8.2) g/dL Albumin 3.8 (3.5-5.0) g/dL - EKG Data -: EKG Interpreted by Tn EKG Comments: EKG reveals normal sinus rhythm with no ST changes. Ventricular rate 82 bpm, IN interval 160, QRS duration 93, QT/QTc 380/422 Disposition Clinical Impression: Abnormal laboratory test Disposition: HOME SELF-CARE Condition: Stable Additional Instructions: Please return to the Emergency Department if symptoms worsen or any other concerns. Is patient prescribed a controlled substance at d/c from ED?: No Referrals: [facility] [Primary Care Provider] - 1-2 days Time of Disposition: 18:51
[2024-05-21 19:00] VITALS: BP 136/80; PULSE 80; TEMP 98
== END 2024-05-21 19:14 | disposition home or self-care (01) ==
LOC: EC 16:39
DX: R79.9 Abnormal finding of blood chemistry, unspecified (principal); Z87.891 Personal history of nicotine dependence
CPT/HCPCS: 36415; 80053; 85025; 99283